=== PATIENT | male | born 1990 | race African-American/Black ===

== ENCOUNTER 2018-08-31 15:54 | Emergency (ER) | payer SELFPAY | END 2018-08-31 16:44 | disposition home or self-care (01) | LOC: ERS 15:54 | DX: L30.9 Dermatitis, unspecified (principal); F17.210 Nicotine dependence, cigarettes, uncomplicated | CPT/HCPCS: 99282 ==

== ENCOUNTER 2019-05-19 07:34 | Emergency (ER) | payer SELFPAY ==
--- NOTE | 2019-05-19 09:12 | RAD ---
RIGHT HAND THREE VIEWS: HISTORY: Right thumb and palm pain. FINDINGS: No fracture, dislocation, or bone destruction is seen. No radiopaque foreign body is identified. POS: [id number]
== END 2019-05-19 08:38 | disposition home or self-care (01) ==
LOC: ERS 07:34
DX: S60.221A Contusion of right hand, initial encounter (principal); F17.210 Nicotine dependence, cigarettes, uncomplicated; W20.8XXA Other cause of strike by thrown, projected or falling object, initial encounter

== ENCOUNTER 2020-02-08 13:22 | Emergency (ER) | payer SELFPAY ==
[2020-02-08 13:56] LABS: Hemoglobin 17.8 g/dL (14.0-18.0); Mean Corpuscular HGB CONC 33.3 g/dL (32.0-36.0); Mean Corpuscular Hemoglobin 30.8 pg (27.0-31.0); Mean Corpuscular Volume 92.5 fL (78.0-98.0); Mean Platelet Volume 8.5 fL (7.4-10.4); Platelet Count 266 thou/uL (130-400); RBC Distribution Width 13.5 % (11.5-14.5); Red Blood Cell (RBC) Count 5.78 mill/uL (4.70-6.10); White Blood Cell (WBC) Count 3.6 thou/uL (4.8-10.8)
[2020-02-08 14:09] LABS: Lymphocytes 44 % (21-51); MDiff Complete? YES; Monocytes 6 % (0-10); Neutrophil 46 % (42-75); Platelet Morphology Comment Appears Adequate; RBC Morphology Normal; Reactive Lymphocytes 4 % (0-10)
[2020-02-08 14:16] LABS: ALT (SGPT) 38 U/L (8-55); AST (SGOT) 27 U/L (5-34); Albumin 4.8 g/dL (3.5-5.0); Alkaline Phosphatase 51 U/L (40-110); Anion Gap 13 mmol/L (10-20); BUN (Urea Nitrogen) 6 mg/dL (8.9-20.6); Bilirubin, Total 0.5 mg/dL (0.2-1.2); Calc. Creatinine Clearance 0 mL/min (70-130); Carbon Dioxide 25 mmol/L (22-29); Chloride 105 mmol/L (98-107); Estimated GFR-MDRD Greater than 90; Glucose 85 mg/dL (70-105); Potassium 3.6 mmol/L (3.5-5.1); Protein, Total 7.8 g/dL (6.0-8.3); Sodium 139 mmol/L (136-145)
[2020-02-08] MEDS ORDERED: Meclizine HCl 25 MG TAB ONE (14:37)
== END 2020-02-08 15:01 | disposition home or self-care (01) ==
LOC: ERS 13:22
DX: H81.399 Other peripheral vertigo, unspecified ear (principal); F17.210 Nicotine dependence, cigarettes, uncomplicated
CPT/HCPCS: 80053; 84484; 85025; 93005; 96360

== ENCOUNTER 2020-10-30 06:22 | Emergency (ER) | payer SELFPAY ==
[2020-10-30 14:03] LABS: SARS-CoV-2 MS2 Positive; SARS-CoV-2 N Gene Negative; SARS-CoV-2 S Gene Negative; SARS-CoV-2 by NAA Not Detected (NotDetected); SARS-CoV-2 orf1ab Negative
== END 2020-10-30 08:01 | disposition home or self-care (01) ==
LOC: ERS 06:22
DX: Z20.828 Contact with and (suspected) exposure to other viral communicable diseases (principal); F17.210 Nicotine dependence, cigarettes, uncomplicated
CPT/HCPCS: 87635; 99283; U0003

== ENCOUNTER 2021-03-06 18:16 | Emergency (ER) | payer SELFPAY ==
[2021-03-06 18:39] LABS: Bacteria/HPF None Seen HPF (None Seen); Bilirubin Negative (Negative); Blood, Urine Negative (Negative); Clarity Turbid (Clear); Glucose, Urine (Dipstick) Normal (Negative); Ketone, Urine Negative (Negative); Leukocyte Negative Leu/uL (Negative); Nitrite Negative (Negative); Protein, Urine (Dipstick) 30 mg/dL (Neg-Trace); RBC/HPF 0-3 HPF (0-3); Specific Gravity, Urine 1.025 (1.002-1.036); Squamous Epithelial None Seen HPF (0-3); Urobilinogen Normal mg/dL (Less than 2); WBC/HPF 0-3 HPF (0-3)
[2021-03-06] MEDS ORDERED: cefTRIAXone\\ROCEPHIN 500 MG VIAL ONE (18:46)
[2021-03-06] MEDS ORDERED: Lidocaine 1% PF 5 ML VIAL ONE (18:47)
[2021-03-06] MEDS ORDERED: Ondansetron ODT 4 MG TAB ONE (18:51)
[2021-03-06] MEDS ORDERED: metroNIDAZOLE 250 MG TAB ONE (18:51)
[2021-03-07 23:48] LABS: Chlam.trachomatis by PCR,Urine Not Detected (NotDetected)
== END 2021-03-06 19:04 | disposition home or self-care (01) ==
LOC: ERS 18:16
DX: N34.2 Other urethritis (principal); F17.210 Nicotine dependence, cigarettes, uncomplicated
CPT/HCPCS: 81003; 81015; 87491; 87591; 96372; 99283; J0696; Q0162

== ENCOUNTER 2025-07-15 23:39 | Inpatient (IN) | payer MEDICAID, SELFPAY ==
[2025-07-16 00:26] LABS: #Basophils Less than 0.03 10x3/uL (0.0-0.2); #Eosinophils Less than 0.03 10x3/uL (0.0-0.7); #Monocytes 0.68 10x3/uL (0.11-0.59); #Neutrophils 2.96 10x3/uL (1.40-6.50); %Basophils 0.4 % (0.0-1.0); %Eosinophils 0.4 % (0.0-10.0); %Lymphocytes 31.4 % (21.0-51.0); %Monocytes 12.6 % (0.0-10.0); %Neutrophils 54.8 % (42.0-75.0); Hematocrit 54.0 % (42.0-52.0); Hemoglobin 17.7 g/dL (14.0-18.0); Mean Corpuscular Hemoglobin 28.9 pg (27.0-31.0); Mean Corpuscular Volume 88.2 fL (78.0-98.0); Platelet Count 265 10x3/uL (130-400); Red Blood Cell (RBC) Count 6.12 mill/uL (4.70-6.10); White Blood Cell (WBC) Count 5.39 10x3/uL (4.8-10.8)
[2025-07-16 00:44] LABS: ALT (SGPT) 43 U/L (Less than 45); AST (SGOT) 34 U/L (11-34); Albumin 4.4 g/dL (3.1-4.5); Alkaline Phosphatase 63 U/L (40-110); Anion Gap 16 mmol/L (10-20); BUN (Urea Nitrogen) 13 mg/dL (8.9-20.6); Bilirubin, Total 0.3 mg/dL (0.3-1.2); Calc. Creatinine Clearance 0 mL/min (70-130); Calcium 10.3 mg/dL (7.8-10.44); Carbon Dioxide 26 mmol/L (22-29); Chloride 100 mmol/L (98-107); Globulin 3.8 g/dL (2.4-3.5); Glucose 139 mg/dL (70-105); Potassium 3.7 mmol/L (3.5-5.1); Sodium 138 mmol/L (136-145)
[2025-07-16] MEDS ORDERED: levETIRAcetam 500 MG (5 mL) VIAL ONE (01:41)
[2025-07-16 02:17] LABS: Acetaminophen 11 mcg/mL (Less than 10); Salicylate Less than 8.0 mg/dL (Less than 8.0)
[2025-07-16] MEDS ORDERED: Acetaminophen 325 MG TAB PO PRN (04:15)
[2025-07-16] MEDS ORDERED: Ondansetron PF 4 MG/2 ML Vial IVP PRN (04:15)
[2025-07-16 05:54] VITALS: BMI 33.6
[2025-07-16] MEDS: Enoxaparin 40 MG (0.4 mL) SYRINGE SC SCH (09:01)
[2025-07-16] MEDS: levETIRAcetam 500 MG TAB PO SCH (09:01)
[2025-07-16] MEDS: Benzonatate 100 MG CAP PO PRN (16:38)
[2025-07-17 04:11] LABS: #Basophils 0.03 10x3/uL (0.0-0.2); #Eosinophils 0.05 10x3/uL (0.0-0.7); #Monocytes 0.39 10x3/uL (0.11-0.59); #Neutrophils 1.49 10x3/uL (1.40-6.50); %Basophils 0.8 % (0.0-1.0); %Eosinophils 1.4 % (0.0-10.0); %Lymphocytes 44.8 % (21.0-51.0); %Monocytes 10.9 % (0.0-10.0); %Neutrophils 41.8 % (42.0-75.0); Hematocrit 52.8 % (42.0-52.0); Hemoglobin 17.5 g/dL (14.0-18.0); Mean Corpuscular Hemoglobin 29.7 pg (27.0-31.0); Mean Corpuscular Volume 89.5 fL (78.0-98.0); Platelet Count 244 10x3/uL (130-400); Red Blood Cell (RBC) Count 5.90 mill/uL (4.70-6.10); White Blood Cell (WBC) Count 3.57 10x3/uL (4.8-10.8)
[2025-07-17 04:18] LABS: Anion Gap 11 mmol/L (10-20); BUN (Urea Nitrogen) 10 mg/dL (8.9-20.6); Calc. Creatinine Clearance 142 mL/min (70-130); Calcium 9.0 mg/dL (7.8-10.44); Carbon Dioxide 26 mmol/L (22-29); Chloride 104 mmol/L (98-107); Glucose 88 mg/dL (70-105); Potassium 3.6 mmol/L (3.5-5.1); Sodium 137 mmol/L (136-145)
[2025-07-17 16:13] LABS: T4 7.08 ug/dL (4.87-11.72); Thyroid Stimulating Hormone 0.3681 uIU/mL (0.35-4.94)
[2025-07-17] MEDS: Guaifenesin DM 100-10/5 ML UDCUP PO PRN (23:35)
[2025-07-18 08:10] LABS: #Basophils Less than 0.03 10x3/uL (0.0-0.2); #Eosinophils 0.04 10x3/uL (0.0-0.7); #Monocytes 0.44 10x3/uL (0.11-0.59); #Neutrophils 1.62 10x3/uL (1.40-6.50); %Basophils 0.5 % (0.0-1.0); %Eosinophils 1.1 % (0.0-10.0); %Lymphocytes 42.7 % (21.0-51.0); %Monocytes 11.8 % (0.0-10.0); %Neutrophils 43.6 % (42.0-75.0); Hematocrit 53.6 % (42.0-52.0); Hemoglobin 17.7 g/dL (14.0-18.0); Mean Corpuscular Hemoglobin 29.3 pg (27.0-31.0); Mean Corpuscular Volume 88.7 fL (78.0-98.0); Platelet Count 241 10x3/uL (130-400); Red Blood Cell (RBC) Count 6.04 mill/uL (4.70-6.10); White Blood Cell (WBC) Count 3.72 10x3/uL (4.8-10.8)
[2025-07-18 08:30] LABS: Albumin 3.8 g/dL (3.1-4.5); Anion Gap 14 mmol/L (10-20); BUN (Urea Nitrogen) 10 mg/dL (8.9-20.6); Bilirubin, Total 0.4 mg/dL (0.3-1.2); Calc. Creatinine Clearance 136 mL/min (70-130); Calcium 9.0 mg/dL (7.8-10.44); Carbon Dioxide 22 mmol/L (22-29); Chloride 106 mmol/L (98-107); Globulin 3.0 g/dL (2.4-3.5); Glucose 81 mg/dL (70-105); Potassium 4.0 mmol/L (3.5-5.1); Sodium 138 mmol/L (136-145)
[2025-07-18 08:31] LABS: ALT (SGPT) 24 U/L (Less than 45); AST (SGOT) 21 U/L (11-34); Alkaline Phosphatase 52 U/L (40-110)
[2025-07-18 18:00] VITALS: BP 139/71; TEMP 97.9
[2025-07-18] MEDS ORDERED: levETIRAcetam 500 MG TAB PO SCH (21:00)
== END 2025-07-18 18:01 | disposition home or self-care (01) | DRG 101 ==
LOC: ERS 23:39 → PCU 07-16 03:56 → OBSVTOIN 07-17 09:21
PROVIDERS: ADMIT Internal Medicine; ATTEND Family Medicine
PROC: XX20X89 Monitoring of Brain Electrical Activity, Computer-aided Detection and Notification, New Technology Group 9 (ICD-10-PCS; principal; 2025-07-16)
PROC: 4A00X4Z Measurement of Central Nervous Electrical Activity, External Approach (ICD-10-PCS; 2025-07-18)
DX: R56.9 Unspecified convulsions (principal); Z91.013 Allergy to seafood; F17.210 Nicotine dependence, cigarettes, uncomplicated; Z82.49 Family history of ischemic heart disease and other diseases of the circulatory system
CPT/HCPCS: 36415; 70450; 70553; 71045; 76376; 80048; 80053; 80307; 82550; 83605; 83880; 83970; 84146; 84436; 84443; 84479; 84484; 85025; 87426; 93005; 95700; 95711; 95957; 96361; 96365; 96372; 96374; G0378; J1650; J1953